=== PATIENT | female | born 1955 | race Caucasian/White ===

== ENCOUNTER 2024-04-27 19:57 | Observation (INO) ==
--- NOTE | 2024-04-27 20:57 | DR.RASH ---
HPI Time Seen Time Seen by Provider: 04/27/24 20:56 PCP Primary Care Physician: Cassie Adan Complaint Chief Complaint:: pt in ed with extreme itching to BLE states she has lymphedema and the itching has become unbearble she seen her pcp yesterday and was given im rocephin, benadryl and started on doxycycline a home nurse was supposed to come and do wound care on pts legs but states they couldn't travel to [facility]. Onset of Chief Complaint: 04/25/24 COVID-19 Coronavirus risk:travel/contact w/high risk person: No Has patient experienced Coronavirus symptoms: No Reviewed Nurses Notes Review: Yes Source History Provided: Patient Mode of Arrival Mode of Arrival: Ambulatory PMH PMH Past Medical History: Yes Past Medical History: Diabetes, Hypertension, Hypothyroidism and Renal Disease Past Surgical History: Yes Surgical History: [employer] Surgery, Hysterectomy, Ortho Surgery and Tonsillectomy Family History History of Family Medical Conditions: Yes Family Medical History: Diabetes Mellitus and Hypertension Social History Do you use any recreational Drugs:: No Travel Risk Coronavirus risk:travel/contact w/high risk person: No Has patient experienced Coronavirus symptoms: No Infectious screening Have you traveled outside the country in the last 6 months?: No Isolation: Standard PE Vital Signs Vitals: Vital Signs Temperature 97.7 F Pulse Rate 76 Respiratory Rate 22 Blood Pressure 163/72 O2 Sat by Pulse Oximetry 95 ROR Labs Reviewed 04/27/24 21:08 04/27/24 21:08 Laboratory: WBC 14.0 X10^3/uL (3.6-10.0) H 04/27/24 21:08 RBC 3.92 X10^6/uL (3.5-5.4) 04/27/24 21:08 Hgb 11.6 g/dL (12.0-16.0) L 04/27/24 21:08 Hct 35.8 % (36.0-47.0) L 04/27/24 21:08 MCV 91.5 fL (80.0-100.0) 04/27/24 21:08 MCH 29.7 pg (27.0-34.0) 04/27/24 21:08 MCHC 32.5 g/dL (33.0-35.0) L 04/27/24 21:08 RDW 14.2 % (11.6-16.5) 04/27/24 21:08 Plt Count 273 X10^3/uL (150.0-450.0) 04/27/24 21:08 MPV 8.7 fL (7.4-11.0) 04/27/24 21:08 Neut % (Auto) 71.4 % (42.0-75.0) 04/27/24 21:08 Lymph % (Auto) 18.5 % (21.0-51.0) L 04/27/24 21:08 [place] % (Auto) 5.7 % (0.0-13.0) 04/27/24 21:08 Eos % (Auto) 3.2 % (0.9-2.9) H 04/27/24 21:08 Baso % (Auto) 1.2 % (0.2-1.0) H 04/27/24 21:08 Neut # (Auto) 10.0 x10^3/uL (2.2-4.8) H 04/27/24 21:08 Lymph # (Auto) 2.6 X10^3/uL (1.3-2.9) 04/27/24 21:08 [place] # (Auto) 0.8 x10^3/uL (0.3-0.8) 04/27/24 21:08 Eos # (Auto) 0.5 x10^3/uL (0.0-0.2) H 04/27/24 21:08 Baso # (Auto) 0.2 X10^3/uL (0.0-0.1) H 04/27/24 21:08 Absolute Nucleated RBC 0.0 /100WBC 04/27/24 21:08 Sodium 135 mmol/L (136-145) L 04/27/24 21:08 Corrected Sodium 136 mmol/L (136-145) 04/27/24 21:08 Potassium 4.5 mmol/L (3.5-5.1) 04/27/24 21:08 Chloride 100 mmol/L (98-107) 04/27/24 21:08 Carbon Dioxide 31.1 mmol/L (21-32) 04/27/24 21:08 BUN 27 mg/dL (7-18) H 04/27/24 21:08 Creatinine 1.79 mg/dL (0.55-1.02) H 04/27/24 21:08 Est GFR (MDRD) Af Amer 36 (>60) L 04/27/24 21:08 Est GFR (MDRD) Non-Af 30 (>60) L 04/27/24 21:08 Glucose 131 mg/dL (65-99) H 04/27/24 21:08 Calcium 9.6 mg/dL (8.5-10.1) 04/27/24 21:08 Corrected Calcium TNP 04/27/24 21:08 Total Bilirubin 0.40 mg/dL (0.2-1.0) 04/27/24 21:08 AST 16 Units/L (15-37) 04/27/24 21:08 ALT 30 Units/L (12-78) 04/27/24 21:08 Alkaline Phosphatase 172 Units/L (46-116) H 04/27/24 21:08 B-Natriuretic Peptide 14.0 pg/mL (0-79) 04/27/24 21:08 Total Protein 7.0 g/dL (6.4-8.2) 04/27/24 21:08 Albumin 3.6 g/dL (3.4-5.0) 04/27/24 21:08 Globulin 3.4 g/dL (2.5-4.5) 04/27/24 21:08 Albumin/Globulin Ratio 1.1 Ratio (1.1-2.1) 04/27/24 21:08 Opioid Opioid Risk Tool Age (Anthony box if 16-45): No History of Preadolescent Sexual Abuse: No Total: 0 Total Score Risk Category: Low Risk Copyright: Melo BARBER predicting aberrant behaviors Discharge Plan Diagnosis Discharge Problem: Bilateral lower leg cellulitis, Failure of outpatient treatment Pain of lower leg Qualifiers: Laterality: bilateral Qualified Code(s): M79.661 - Pain in right lower leg Discharge Plan Patient Disposition: 09 ADMITTED INPATIENT Condition: Stable Prescriptions: No Action silver sulfadiazine [SSD] 1 % cream TOPICAL BID amiodarone 200 mg tablet 400 mg PO BID acetaminophen-codeine 300-30 mg tablet 1 tab PO BID PRN (Reason: pain) amlodipine 5 mg tablet 5 mg PO QDAY spironolactone 25 mg tablet 25 mg PO QDAY doxycycline monohydrate 100 mg capsule 100 mg PO BID diclofenac sodium 75 mg tablet,delayed release (DR/EC) 75 mg PO BID diltiazem HCl 120 mg capsule,extended release 24hr 120 mg PO BID bumetanide 1 mg tablet 1 mg PO QDAY montelukast 10 mg tablet 10 mg PO QDAY hydroxyzine HCl 25 mg tablet 25 mg PO TID PRN (Reason: itch) losartan 100 mg tablet 100 mg PO QDAY losartan 100 mg tablet 100 mg PO QDAY levothyroxine 112 mcg tablet 112 mcg PO QAM rosuvastatin 20 mg tablet 20 mg PO QPM duloxetine 60 mg capsule,delayed release(DR/EC) 60 mg PO QDAY Eliquis 5 mg tablet 5 mg PO BID Mounjaro 7.5 mg/0.5 mL pen injector 7.5 mg SUBCUT QWEEK Health Concerns: Post Hospitalization: new medications and changes needed to prevent readmission or further decline. Pt educated and given instructions on all concerns. Plan of Treatment: Continue with present treatment and follow up plan. Pt is to keep follow up appointment as instructed and take medications as ordered. Orders to Discharge Patient Discharge Orders: Transfer (Routine); Ordered 04/27/24 Ordered By: MIKE PIZARRO Follow ups/Referrals Follow ups/Referrals: Cassie Adan [Primary Care Provider] - 3 days Instructions Stand Alone Forms: Post Hospital Follow Up Care
[2024-04-27 21:28] LABS: BASOPHILS # (AUTO) 0.2 X10^3/uL (0.0-0.1); BASOPHILS % (AUTO) 1.2 % (0.2-1.0); EOSINOPHILS # (AUTO) 0.5 x10^3/uL (0.0-0.2); EOSINOPHILS % (AUTO) 3.2 % (0.9-2.9); HEMATOCRIT 35.8 % (36.0-47.0); HEMOGLOBIN 11.6 g/dL (12.0-16.0); LYMPHOCYTES # (AUTO) 2.6 X10^3/uL (1.3-2.9); LYMPHOCYTES % (AUTO) 18.5 % (21.0-51.0); MEAN CORPUSCULAR HEMOGLOBIN 29.7 pg (27.0-34.0); MEAN CORPUSCULAR HGB CONC 32.5 g/dL (33.0-35.0); MEAN CORPUSCULAR VOLUME 91.5 fL (80.0-100.0); MEAN PLATELET VOLUME 8.7 fL (7.4-11.0); MONOCYTES # (AUTO) 0.8 x10^3/uL (0.3-0.8); MONOCYTES % (AUTO) 5.7 % (0.0-13.0); NEUTROPHILS % (AUTO) 71.4 % (42.0-75.0); PLATELET COUNT 273 X10^3/uL (150.0-450.0); RED BLOOD COUNT 3.92 X10^6/uL (3.5-5.4); RED CELL DISTRIBUTION WIDTH 14.2 % (11.6-16.5)
[2024-04-27 21:39] LABS: ALANINE AMINOTRANSFERASE 30 Units/L (12-78); ALBUMIN 3.6 g/dL (3.4-5.0); ALKALINE PHOSPHATASE 172 Units/L (46-116); ASPARTATE AMINO TRANSFERASE 16 Units/L (15-37); BLOOD UREA NITROGEN 27 mg/dL (7-18); CALCIUM 9.6 mg/dL (8.5-10.1); CARBON DIOXIDE 31.1 mmol/L (21-32); CHLORIDE 100 mmol/L (98-107); COR NA(FOR HYPERGLY) 136 mmol/L (136-145); CREATININE 1.79 mg/dL (0.55-1.02); GLUCOSE 131 mg/dL (65-99); POTASSIUM 4.5 mmol/L (3.5-5.1); SODIUM 135 mmol/L (136-145); eGFR NON BLACK RACES 30 (>60)
[2024-04-27] MEDS: VANCOMYCIN IV *PREMIX 1 G/200 ML BAG 1 G/200 ML PIGGYBACK IV ONE (22:34)
[2024-04-27] MEDS ORDERED: VISTARIL PO ONE (23:16)
[2024-04-27] MEDS: VISTARIL PO ONE (23:19)
[2024-04-27] MEDS ORDERED: ZOFRAN TAB 4 MG PO PRN (23:50)
[2024-04-28 00:13] VITALS: BMI 58.5
[2024-04-28 05:54] LABS: BASOPHILS # (AUTO) 0.1 X10^3/uL (0.0-0.1); BASOPHILS % (AUTO) 0.5 % (0.2-1.0); EOSINOPHILS # (AUTO) 0.4 x10^3/uL (0.0-0.2); HEMATOCRIT 33.5 % (36.0-47.0); HEMOGLOBIN 11.2 g/dL (12.0-16.0); LYMPHOCYTES # (AUTO) 2.6 X10^3/uL (1.3-2.9); LYMPHOCYTES % (AUTO) 24.5 % (21.0-51.0); MEAN CORPUSCULAR HEMOGLOBIN 30.5 pg (27.0-34.0); MEAN CORPUSCULAR HGB CONC 33.3 g/dL (33.0-35.0); MEAN CORPUSCULAR VOLUME 91.4 fL (80.0-100.0); MEAN PLATELET VOLUME 8.9 fL (7.4-11.0); MONOCYTES # (AUTO) 0.7 x10^3/uL (0.3-0.8); NEUTROPHILS # (AUTO) 6.9 x10^3/uL (2.2-4.8); PLATELET COUNT 240 X10^3/uL (150.0-450.0); RED BLOOD COUNT 3.66 X10^6/uL (3.5-5.4); RED CELL DISTRIBUTION WIDTH 14.2 % (11.6-16.5); WHITE BLOOD COUNT 10.7 X10^3/uL (3.6-10.0)
[2024-04-28 06:06] LABS: ALANINE AMINOTRANSFERASE 26 Units/L (12-78); ALBUMIN 3.4 g/dL (3.4-5.0); ALKALINE PHOSPHATASE 148 Units/L (46-116); ASPARTATE AMINO TRANSFERASE 14 Units/L (15-37); BLOOD UREA NITROGEN 29 mg/dL (7-18); CALCIUM 9.2 mg/dL (8.5-10.1); CARBON DIOXIDE 27.6 mmol/L (21-32); CHLORIDE 100 mmol/L (98-107); COR NA(FOR HYPERGLY) 135 mmol/L (136-145); CREATININE 1.84 mg/dL (0.55-1.02); GLUCOSE 126 mg/dL (65-99); POTASSIUM 4.2 mmol/L (3.5-5.1); SODIUM 134 mmol/L (136-145); TOTAL PROTEIN 6.4 g/dL (6.4-8.2); eGFR NON BLACK RACES 29 (>60)
--- NOTE | 2024-04-28 08:51 | EKG ---
Test Reason : HX AFIB Blood Pressure : */* mmHG Vent. Rate : 73 BPM Atrial Rate : 73 BPM P-R Int : 210 ms QRS Dur : 82 ms QT Int : 356 ms P-R-T Axes : 76 13 34 degrees QTc Int : 392 ms Sinus rhythm with 1st degree AV block Low voltage QRS Possible Anterolateral infarct , age undetermined Abnormal ECG No previous ECGs available Confirmed by eJan Martinez MD ([id number]) on 04/28/2024 1:42:23 PM Referred By: Confirmed By: Jean Martinez MD
[2024-04-28] MEDS ORDERED: VANCOMYCIN IV *PREMIX 1 G/200 ML BAG 1 G/200 ML PIGGYBACK IV SCH ×2 (09:00→22:00)
[2024-04-28] MEDS ORDERED: BUMEX TAB 1 MG PO SCH (09:00)
[2024-04-28] MEDS ORDERED: NORVASC TAB 5 MG PO SCH (09:00)
[2024-04-28] MEDS: NS 1,000 ML IV 1,000 ML IV SCH (09:38)
[2024-04-28] MEDS: LASIX IVP SCH (09:40)
[2024-04-28] MEDS: CORDARONE TAB 200 MG PO SCH (09:40)
[2024-04-28] MEDS: COZAAR PO SCH (09:41)
[2024-04-28] MEDS: SYNTHROID 112 mcg TAB PO SCH (09:41)
[2024-04-28] MEDS: VISTARIL PO PRN (09:41)
[2024-04-28] MEDS: CARDIZEM CD 120 MG 24-HR PO SCH (09:42)
[2024-04-28] MEDS: ELIQUIS PO SCH (09:42)
[2024-04-28] MEDS: BENADRYL INJ 50 MG VIAL IV ONE (14:46)
--- NOTE | 2024-04-28 15:22 | VAS ---
EXAM: LOWER EXT VENOUS, BILATERAL HISTORY: CELLULITIS; COMPARISON: None available. TECHNIQUE: Multiple obrien scale and color flow Doppler images of the deep venous system were obtained of the righ t and left lower extremity. FINDINGS: The deep venous system of the right and left lower extremities were evaluated from the level of the c ommon femoral vein through the popliteal vein. Normal color flow and augmentation can be observed. In addition, normal compression is seen throughout the deep venous system. IMPRESSION: Negative for DVT. THIS IS AN ELECTRONICALLY VERIFIED FINAL REPORT 04/28/2024 3:19 PM - Electronically signed by Prince Chappell MD
[2024-04-28] MEDS: BENADRYL INJ 50 MG VIAL IVP PRN (16:51)
[2024-04-28] MEDS: KENALOG CREAM TOP SCH (18:05)
[2024-04-28] MEDS: VANCOMYCIN IV *PREMIX 1.5 G/300 ML BAG 1.5 G/300 ML PIGGYBACK IV SCH (20:35)
[2024-04-28] MEDS: CRESTOR TAB 10 MG PO SCH (20:39)
[2024-04-28] MEDS: TYLENOL #3 TAB (W/CODEINE) PO PRN (21:02)
[2024-04-29] MEDS: VALIUM PO ONE (00:21)
[2024-04-29 04:44] LABS: BASOPHILS # (AUTO) 0.1 X10^3/uL (0.0-0.1); BASOPHILS % (AUTO) 0.6 % (0.2-1.0); EOSINOPHILS # (AUTO) 0.5 x10^3/uL (0.0-0.2); EOSINOPHILS % (AUTO) 4.8 % (0.9-2.9); HEMOGLOBIN 11.4 g/dL (12.0-16.0); LYMPHOCYTES # (AUTO) 2.5 X10^3/uL (1.3-2.9); MONOCYTES # (AUTO) 0.7 x10^3/uL (0.3-0.8); PLATELET COUNT 236 X10^3/uL (150.0-450.0); WHITE BLOOD COUNT 10.1 X10^3/uL (3.6-10.0)
[2024-04-29 04:53] LABS: HEMATOCRIT 34.2 % (36.0-47.0); LYMPHOCYTES % (AUTO) 24.6 % (21.0-51.0); MEAN CORPUSCULAR HEMOGLOBIN 30.4 pg (27.0-34.0); MEAN CORPUSCULAR HGB CONC 33.4 g/dL (33.0-35.0); MEAN CORPUSCULAR VOLUME 91.2 fL (80.0-100.0); MEAN PLATELET VOLUME 8.9 fL (7.4-11.0); MONOCYTES % (AUTO) 7.4 % (0.0-13.0); NEUTROPHILS # (AUTO) 6.3 x10^3/uL (2.2-4.8); NEUTROPHILS % (AUTO) 62.6 % (42.0-75.0); RED BLOOD COUNT 3.76 X10^6/uL (3.5-5.4); RED CELL DISTRIBUTION WIDTH 14.2 % (11.6-16.5)
[2024-04-29 04:56] LABS: ALANINE AMINOTRANSFERASE 31 Units/L (12-78); ALBUMIN 3.4 g/dL (3.4-5.0); ALKALINE PHOSPHATASE 154 Units/L (46-116); ASPARTATE AMINO TRANSFERASE 32 Units/L (15-37); BLOOD UREA NITROGEN 35 mg/dL (7-18); CALCIUM 8.9 mg/dL (8.5-10.1); CARBON DIOXIDE 27.9 mmol/L (21-32); CHLORIDE 103 mmol/L (98-107); COR NA(FOR HYPERGLY) 142 mmol/L (136-145); CREATININE 1.93 mg/dL (0.55-1.02); GLUCOSE 127 mg/dL (65-99); POTASSIUM 4.1 mmol/L (3.5-5.1); SODIUM 141 mmol/L (136-145); TOTAL PROTEIN 6.4 g/dL (6.4-8.2); eGFR NON BLACK RACES 27 (>60)
--- NOTE | 2024-04-29 08:31 | DR.H&P ---
H&P History & Physical for Day of: H&P Date: 04/27/24 Chief Complaint Chief Complaint: LOWER LEG SWELLING, REDNESS AND ITCHING History of Present Illness History of Present Illness: PT IS 69 WM, ER ADMISSION AFTER PRESENTING WITH CO BILATERAL LOWER LEGS SWOLLEN WITH DIFFUSE REDNESS AND ITCHING. PT HAS HAD IM ROCEPHIN, BENADRYL AND PO ATBX FROM HER PCP FOR CELLULITIS. PT HAS PMH OF MO, HTN, HEART FAILURE, AND RENAL DISEASE. PT ADMITTED FOR TREATMENT AND EVALUATION OF ACUTE ILLNESS. Past Medical History Past Medical History: Diabetes, Hypertension, Hypothyroidism and Renal Disease Past Surgical History Surgical History: Cholecystectomy, Hysterectomy and Tonsillectomy Family History Family Medical History: Diabetes Mellitus, Cancer and Hypertension Social History Does patient currently use any type of tobacco product: No Type of Tobacco Use: None Does any household member use tobacco: Yes Alcohol Use: None Drug Use: None Medications Home Medications: Home Medications Medication Instructions Recorded Confirmed Type acetaminophen 300 mg-codeine 30 mg 1 tab PO BID PRN pain 04/27/24 04/27/24 History tablet amiodarone 200 mg tablet 400 mg PO BID 04/27/24 04/27/24 History amlodipine 5 mg tablet 5 mg PO QDAY blood pressure 04/27/24 04/27/24 History apixaban 5 mg tablet (Eliquis) 5 mg PO BID 04/27/24 04/27/24 History bumetanide 1 mg tablet 1 mg PO QDAY 04/27/24 04/27/24 History diclofenac sodium 75 mg 75 mg PO BID 04/27/24 04/27/24 History tablet,delayed release diltiazem HCl 120 mg 120 mg PO BID 04/27/24 04/27/24 History capsule,extended release 24 hr doxycycline monohydrate 100 mg 100 mg PO BID 04/27/24 04/27/24 History capsule duloxetine 60 mg capsule,delayed 60 mg PO QDAY 04/27/24 04/27/24 History release hydroxyzine HCl 25 mg tablet 25 mg PO TID PRN itch 04/27/24 04/27/24 History levothyroxine 112 mcg tablet 112 mcg PO QAM 04/27/24 04/27/24 History losartan 100 mg tablet 100 mg PO QDAY 04/27/24 04/27/24 History losartan 100 mg tablet 100 mg PO QDAY 04/27/24 04/27/24 History montelukast 10 mg tablet 10 mg PO QDAY allergies 04/27/24 04/27/24 History rosuvastatin 20 mg tablet 20 mg PO QPM 04/27/24 04/27/24 History silver sulfadiazine 1 % topical 1 applic topical BID 04/27/24 04/28/24 History cream (SSD) spironolactone 25 mg tablet 25 mg PO QDAY 04/27/24 04/27/24 History tirzepatide 7.5 mg/0.5 mL 7.5 mg subcut QWEEK 04/27/24 04/27/24 History subcutaneous pen injector (Zahida) Allergies Allergies Allergy/AdvReac Type Severity Reaction Status Date / Time metronidazole [From Flagyl] Allergy Verified 04/27/24 21:06 tramadol Allergy Verified 04/27/24 21:01 Labs 04/29/24 04:10 04/29/24 04:10 Labs: Laboratory WBC 10.7 X10^3/uL (3.6-10.0) H 04/28/24 05:10 RBC 3.66 X10^6/uL (3.5-5.4) 04/28/24 05:10 Hgb 11.2 g/dL (12.0-16.0) L 04/28/24 05:10 Hct 33.5 % (36.0-47.0) L 04/28/24 05:10 MCV 91.4 fL (80.0-100.0) 04/28/24 05:10 MCH 30.5 pg (27.0-34.0) 04/28/24 05:10 MCHC 33.3 g/dL (33.0-35.0) 04/28/24 05:10 RDW 14.2 % (11.6-16.5) 04/28/24 05:10 Plt Count 240 X10^3/uL (150.0-450.0) 04/28/24 05:10 MPV 8.9 fL (7.4-11.0) 04/28/24 05:10 Neut % (Auto) 64.0 % (42.0-75.0) 04/28/24 05:10 Lymph % (Auto) 24.5 % (21.0-51.0) 04/28/24 05:10 [place] % (Auto) 7.0 % (0.0-13.0) 04/28/24 05:10 Eos % (Auto) 4.0 % (0.9-2.9) H 04/28/24 05:10 Baso % (Auto) 0.5 % (0.2-1.0) 04/28/24 05:10 Neut # (Auto) 6.9 x10^3/uL (2.2-4.8) H 04/28/24 05:10 Lymph # (Auto) 2.6 X10^3/uL (1.3-2.9) 04/28/24 05:10 [place] # (Auto) 0.7 x10^3/uL (0.3-0.8) 04/28/24 05:10 Eos # (Auto) 0.4 x10^3/uL (0.0-0.2) H 04/28/24 05:10 Baso # (Auto) 0.1 X10^3/uL (0.0-0.1) 04/28/24 05:10 Absolute Nucleated RBC 0.0 /100WBC 04/28/24 05:10 Sodium 134 mmol/L (136-145) L 04/28/24 05:10 Corrected Sodium 135 mmol/L (136-145) L 04/28/24 05:10 Potassium 4.2 mmol/L (3.5-5.1) 04/28/24 05:10 Chloride 100 mmol/L (98-107) 04/28/24 05:10 Carbon Dioxide 27.6 mmol/L (21-32) 04/28/24 05:10 BUN 29 mg/dL (7-18) H 04/28/24 05:10 Creatinine 1.84 mg/dL (0.55-1.02) H 04/28/24 05:10 Est GFR (MDRD) Af Amer 35 (>60) L 04/28/24 05:10 Est GFR (MDRD) Non-Af 29 (>60) L 04/28/24 05:10 Glucose 126 mg/dL (65-99) H 04/28/24 05:10 POC Glucose (mg/dL) 123 mg/dL (65-99) H 04/28/24 11:04 Calcium 9.2 mg/dL (8.5-10.1) 04/28/24 05:10 Corrected Calcium TNP 04/28/24 05:10 Total Bilirubin 0.50 mg/dL (0.2-1.0) 04/28/24 05:10 AST 14 Units/L (15-37) L 04/28/24 05:10 ALT 26 Units/L (12-78) 04/28/24 05:10 Alkaline Phosphatase 148 Units/L (46-116) H 04/28/24 05:10 B-Natriuretic Peptide 14.0 pg/mL (0-79) 04/27/24 21:08 Total Protein 6.4 g/dL (6.4-8.2) 04/28/24 05:10 Albumin 3.4 g/dL (3.4-5.0) 04/28/24 05:10 Globulin 3.0 g/dL (2.5-4.5) 04/28/24 05:10 Albumin/Globulin Ratio 1.1 Ratio (1.1-2.1) 04/28/24 05:10 Review of Systems Constitutional: No Symptoms Reported Eyes: No Symptoms Reported ENT: No Symptoms Reported Respiratory: Shortness of Breath Cardiovascular: Edema Gastrointestinal: No Symptoms Reported Genitourinary: No Symptoms Reported Musculoskeletal: Leg Pain Skin: Rash (DIFFUSE BILATERAL LOWER EXTREMITY) Physical Exam Vital Signs: Vital Signs Temperature 97.5 F Temperature 97.0 F Pulse Rate [Left] 71 Pulse Rate [Left] 74 Respiratory Rate 18 Respiratory Rate 19 Blood Pressure [Left Arm] 126/60 Blood Pressure [Left Arm] 133/61 O2 Sat by Pulse Oximetry 92 O2 Sat by Pulse Oximetry 97 Oriented: Normal Eyes: Normal Ear: Normal Nose: Normal Throat: Normal Respiratory: RLL Diminished and LLL Diminished Cardiovascular: Normal and Edema : Normal Auscultation: Bowel Sounds: Normal Palpation: Normal Tenderness: Normal Skin: Rash, Red and Tender Musculoskeletal: Leg, Swelling and Tender Psychiatric: Anxiety Mood Description: Anxious Affect: Anxious Speech Pattern: Clear and Appropriate Assessment/Plan (1) Bilateral lower leg cellulitis: Status: Acute Plan: ADMIT, CULTURES ON ADMISSION IV VANCOMYCIN BP CONTROL, VERIFY AND CONTINUE HOME MEDICATIONS (2) Hypertension: Status: Acute (3) Atrial fibrillation, controlled: Status: Acute
[2024-04-29] MEDS: MORPHINE SULFATE INJ 2 MG INJ IVP PRN (10:46)
[2024-04-29] MEDS: MYCOLOG-II CREAM TOP SCH (10:52)
[2024-04-29] MEDS: PHARMACY CONSULT - VANCOMYCIN XX SCH (19:16)
[2024-04-29] MEDS: VANCOMYCIN IV *PREMIX 1 G/200 ML BAG 1 G/200 ML PIGGYBACK IV ONE (19:17)
[2024-04-29] MEDS: SOLU-Medrol 40 MG VIAL IVP SCH (19:30)
[2024-04-29] MEDS: BENADRYL INJ 50 MG VIAL IV SCH (19:30)
[2024-04-29] MEDS: CLEOCIN 300 MG IV PREMIX 300 MG/50 ML BAG IV SCH (21:15)
[2024-04-30] MEDS: RESTORIL CAP 15 MG PO PRN (00:02)
[2024-04-30 05:43] LABS: BASOPHILS % (AUTO) 0.2 % (0.2-1.0); EOSINOPHILS % (AUTO) 0.2 % (0.9-2.9); HEMATOCRIT 36.1 % (36.0-47.0); HEMOGLOBIN 11.8 g/dL (12.0-16.0); LYMPHOCYTES % (AUTO) 11.1 % (21.0-51.0); MEAN CORPUSCULAR HGB CONC 32.7 g/dL (33.0-35.0); MEAN CORPUSCULAR VOLUME 91.8 fL (80.0-100.0); MEAN PLATELET VOLUME 9.1 fL (7.4-11.0); MONOCYTES # (AUTO) 0.1 x10^3/uL (0.3-0.8); MONOCYTES % (AUTO) 0.7 % (0.0-13.0); NEUTROPHILS # (AUTO) 7.7 x10^3/uL (2.2-4.8); NEUTROPHILS % (AUTO) 87.8 % (42.0-75.0); PLATELET COUNT 217 X10^3/uL (150.0-450.0); RED BLOOD COUNT 3.93 X10^6/uL (3.5-5.4); RED CELL DISTRIBUTION WIDTH 14.3 % (11.6-16.5); WHITE BLOOD COUNT 8.7 X10^3/uL (3.6-10.0)
[2024-04-30 05:54] LABS: ALANINE AMINOTRANSFERASE 36 Units/L (12-78); ALBUMIN 3.4 g/dL (3.4-5.0); ALKALINE PHOSPHATASE 168 Units/L (46-116); ASPARTATE AMINO TRANSFERASE 20 Units/L (15-37); BLOOD UREA NITROGEN 30 mg/dL (7-18); CALCIUM 9.2 mg/dL (8.5-10.1); CARBON DIOXIDE 23.8 mmol/L (21-32); CHLORIDE 106 mmol/L (98-107); COR NA(FOR HYPERGLY) 144 mmol/L (136-145); CREATININE 1.57 mg/dL (0.55-1.02); GLUCOSE 221 mg/dL (65-99); POTASSIUM 4.5 mmol/L (3.5-5.1); SODIUM 141 mmol/L (136-145); TOTAL PROTEIN 6.8 g/dL (6.4-8.2); eGFR NON BLACK RACES 35 (>60)
[2024-04-30] MEDS: NovoLIN R (or HumuLIN R) SUBCUT PRN (06:06)
[2024-04-30] MEDS: VSL#3 PROBIOTIC CAP 112.5 B PO SCH (09:03)
--- NOTE | 2024-04-30 11:30 | PCM.PROG ---
Progress Note Progress Note for Day of Date of Exam: 04/30/24 Subjective Subjective: Patient seen at bedside, no acute events overnight. Her LE erythema has improved. She states itching is better with benadryl. She is currently being treated for cellulitis with IV clindamycin. Denies N/V/D. Renal function is improving. LE US was negative for DVT. She was noted to have some welts around her groin and thigh area yesterday. She was given solumedrol and benadryl. Labs/imaging reviewed: -Hgb 11.8 WBC 8.7 BUN/Cr 30/1.57 - Venous US negative Plan: Continue IV Clindamycin. Continue benadryl prn. Will add Vistaril for itching. Continue home medications. Continue hydration. Replace electrolytes as per protocol. Monitor AM labs/imaging. Monitor leg erythema. Past Medical Family Social History Allergies: Allergies metronidazole [From Flagyl] Allergy (Verified 04/27/24 21:06) tramadol Allergy (Verified 04/27/24 21:01) Vital Signs and I&O's Vital Signs: Vital Signs Temperature 97.7 F Temperature 97.4 F Pulse Rate [Left] 84 Pulse Rate [Left] 75 Respiratory Rate 21 Respiratory Rate 20 Blood Pressure [Left Arm] 160/65 Blood Pressure [Left Arm] 132/59 O2 Sat by Pulse Oximetry 97 O2 Sat by Pulse Oximetry 94 Intake and Output: Intake & Output 04/27/24 04/28/24 04/29/24 04/30/24 23:59 23:59 23:59 23:59 Intake Total 3571 / 3571 5288 / 5288 809 / 809 Output Total 1700 / 1700 3650 / 3650 0 / 0 Balance 1871 / 1871 1638 / 1638 809 / 809 Physical Exam Oriented: Normal Eyes: Normal Ear: Normal Nose: Normal Throat: Normal Cardiovascular: Normal and Edema Auscultation: Bowel Sounds: Normal Tenderness: Normal Skin: Rash (improved ), Red and Tender Musculoskeletal: Leg, Swelling and Tender Psychiatric: Normal Mood Description: Calm Affect: Normal Speech Pattern: Clear and Appropriate Laboratory and Diagnostics 04/30/24 05:03 04/30/24 05:03 Labs: Laboratory WBC 8.7 X10^3/uL (3.6-10.0) 04/30/24 05:03 RBC 3.93 X10^6/uL (3.5-5.4) 04/30/24 05:03 Hgb 11.8 g/dL (12.0-16.0) L 04/30/24 05:03 Hct 36.1 % (36.0-47.0) 04/30/24 05:03 MCV 91.8 fL (80.0-100.0) 04/30/24 05:03 MCH 30.0 pg (27.0-34.0) 04/30/24 05:03 MCHC 32.7 g/dL (33.0-35.0) L 04/30/24 05:03 RDW 14.3 % (11.6-16.5) 04/30/24 05:03 Plt Count 217 X10^3/uL (150.0-450.0) 04/30/24 05:03 MPV 9.1 fL (7.4-11.0) 04/30/24 05:03 Neut % (Auto) 87.8 % (42.0-75.0) H 04/30/24 05:03 Lymph % (Auto) 11.1 % (21.0-51.0) L 04/30/24 05:03 [place] % (Auto) 0.7 % (0.0-13.0) 04/30/24 05:03 Eos % (Auto) 0.2 % (0.9-2.9) L 04/30/24 05:03 Baso % (Auto) 0.2 % (0.2-1.0) 04/30/24 05:03 Neut # (Auto) 7.7 x10^3/uL (2.2-4.8) H 04/30/24 05:03 Lymph # (Auto) 1.0 X10^3/uL (1.3-2.9) L 04/30/24 05:03 [place] # (Auto) 0.1 x10^3/uL (0.3-0.8) L 04/30/24 05:03 Eos # (Auto) 0.0 x10^3/uL (0.0-0.2) 04/30/24 05:03 Baso # (Auto) 0.0 X10^3/uL (0.0-0.1) 04/30/24 05:03 Absolute Nucleated RBC 0.1 /100WBC 04/30/24 05:03 Sodium 141 mmol/L (136-145) 04/30/24 05:03 Corrected Sodium 144 mmol/L (136-145) 04/30/24 05:03 Potassium 4.5 mmol/L (3.5-5.1) 04/30/24 05:03 Chloride 106 mmol/L (98-107) 04/30/24 05:03 Carbon Dioxide 23.8 mmol/L (21-32) 04/30/24 05:03 BUN 30 mg/dL (7-18) H 04/30/24 05:03 Creatinine 1.57 mg/dL (0.55-1.02) H 04/30/24 05:03 Est GFR (MDRD) Af Amer 42 (>60) L 04/30/24 05:03 Est GFR (MDRD) Non-Af 35 (>60) L 04/30/24 05:03 Glucose 221 mg/dL (65-99) H 04/30/24 05:03 POC Glucose (mg/dL) 211 mg/dL (65-99) H 04/30/24 05:42 Calcium 9.2 mg/dL (8.5-10.1) 04/30/24 05:03 Corrected Calcium TNP 04/30/24 05:03 Total Bilirubin 0.40 mg/dL (0.2-1.0) 04/30/24 05:03 AST 20 Units/L (15-37) 04/30/24 05:03 ALT 36 Units/L (12-78) 04/30/24 05:03 Alkaline Phosphatase 168 Units/L (46-116) H 04/30/24 05:03 B-Natriuretic Peptide 14.0 pg/mL (0-79) 04/27/24 21:08 Total Protein 6.8 g/dL (6.4-8.2) 04/30/24 05:03 Albumin 3.4 g/dL (3.4-5.0) 04/30/24 05:03 Globulin 3.4 g/dL (2.5-4.5) 04/30/24 05:03 Albumin/Globulin Ratio 1.0 Ratio (1.1-2.1) L 04/30/24 05:03 Plan (1) Bilateral lower leg cellulitis: Status: Acute (2) Hypertension: Status: Chronic Qualifiers: Hypertension type: primary hypertension Qualified Code(s): I10 - Essential (primary) hypertension (3) Atrial fibrillation, controlled: Status: Chronic (4) Sciatica: Status: Chronic Qualifiers: Laterality: bilateral Qualified Code(s): M54.31 - Sciatica, right side; M54.32 - Sciatica, left side (5) Lower back pain: Status: Chronic Qualifiers: Back pain laterality: bilateral Chronicity: acute Sciatica presence: unspecified whether sciatica present Qualified Code(s): M54.50 - Low back pain, unspecified
[2024-04-30] MEDS: VISTARIL PO PRN (12:53)
[2024-04-30 17:03] VITALS: RESP 20
[2024-04-30] MEDS: SNACK - Diabetic Appropriate PO SCH (19:48)
[2024-04-30] MEDS ORDERED: PHARMACY COMMENT IV ONE (20:30)
[2024-05-01 05:54] LABS: BASOPHILS % (AUTO) 0.2 % (0.2-1.0); EOSINOPHILS % (AUTO) 0.1 % (0.9-2.9); HEMATOCRIT 32.5 % (36.0-47.0); HEMOGLOBIN 10.7 g/dL (12.0-16.0); LYMPHOCYTES # (AUTO) 1.7 X10^3/uL (1.3-2.9); LYMPHOCYTES % (AUTO) 9.1 % (21.0-51.0); MEAN CORPUSCULAR HEMOGLOBIN 30.2 pg (27.0-34.0); MEAN CORPUSCULAR VOLUME 91.4 fL (80.0-100.0); MEAN PLATELET VOLUME 8.9 fL (7.4-11.0); MONOCYTES % (AUTO) 5.2 % (0.0-13.0); NEUTROPHILS # (AUTO) 16.2 x10^3/uL (2.2-4.8); NEUTROPHILS % (AUTO) 85.4 % (42.0-75.0); PLATELET COUNT 250 X10^3/uL (150.0-450.0); RED BLOOD COUNT 3.55 X10^6/uL (3.5-5.4); RED CELL DISTRIBUTION WIDTH 14.4 % (11.6-16.5)
[2024-05-01 06:04] LABS: ALANINE AMINOTRANSFERASE 36 Units/L (12-78); ALBUMIN 3.5 g/dL (3.4-5.0); ALKALINE PHOSPHATASE 145 Units/L (46-116); ASPARTATE AMINO TRANSFERASE 19 Units/L (15-37); BLOOD UREA NITROGEN 27 mg/dL (7-18); CARBON DIOXIDE 24.8 mmol/L (21-32); CHLORIDE 107 mmol/L (98-107); COR NA(FOR HYPERGLY) 144 mmol/L (136-145); CREATININE 1.43 mg/dL (0.55-1.02); GLUCOSE 179 mg/dL (65-99); POTASSIUM 4.6 mmol/L (3.5-5.1); SODIUM 142 mmol/L (136-145); TOTAL PROTEIN 6.5 g/dL (6.4-8.2); eGFR NON BLACK RACES 39 (>60)
[2024-05-01 08:08] VITALS: TEMP 97.8
[2024-05-01 13:19] VITALS: BP 138/63; PULSE 75; O2SAT 95
--- NOTE | 2024-05-04 16:34 | W.DIS.FURT ---
Summary of Discharge Discharge Summary of Date Date of Exam: 05/02/24 Admission Date Date of Admission: 04/27/24 Admission Diagnosis Patient Problems (Updated 05/02/24 @ 00:20 by Tyron Cazares) Bilateral lower leg cellulitis (Acute) L03.116, L03.115 Pain of lower leg (Acute) M79.669 Failure of outpatient treatment (Acute) Z78.9 Hospital Course: Ms. Kevin is a 69-year-old female with past medical history of CHF, hypertension, CAD and atrial fibrillation presented with worsening lower extremity redness and swelling. Patient was treated for antibiotics outpatient but continued to have worsening symptoms. She was admitted for further evaluation. She was started on IV antibiotics, pain control and hydration. Venous ultrasound was negative for DVT. Her home medications were restarted. Her labs were monitored daily and electrolytes replaced as needed. Her leg redness and swelling did improve with antibiotics. Cultures were negative. She was ambulating and doing well. She was stable to be discharged home on oral antibiotics. She was also given Vistaril for itching. She will follow-up with PCP as scheduled. Vital Signs: Vital Signs (72 hours) 04/28/24 12:00 04/28/24 16:00 04/28/24 19:00 Temperature 97.5 F L 97.8 F Pulse Rate [Left] 71 68 Respiratory Rate 18 19 Blood Pressure [Left Arm] 126/60 120/58 O2 Sat by Pulse Oximetry 92 L 94 L Oxygen Delivery Method Room Air Room Air Room Air Oxygen Flow Rate FIO2% 04/28/24 21:02 04/28/24 20:00 04/28/24 21:49 Temperature 97.7 F Pulse Rate [Left] 71 Respiratory Rate 24 20 20 Blood Pressure [Left Arm] 124/58 O2 Sat by Pulse Oximetry 95 Oxygen Delivery Method Room Air Oxygen Flow Rate FIO2% 04/28/24 22:02 04/28/24 23:48 04/29/24 04:00 Temperature 97.8 F 97.9 F Pulse Rate [Left] 71 71 Respiratory Rate 20 22 20 Blood Pressure [Left Arm] 116/64 108/62 O2 Sat by Pulse Oximetry 95 95 Oxygen Delivery Method Room Air Room Air Oxygen Flow Rate FIO2% 04/29/24 10:46 04/29/24 07:00 04/29/24 08:00 Temperature 98.0 F Pulse Rate [Left] 71 Respiratory Rate 20 18 Blood Pressure [Left Arm] 126/58 O2 Sat by Pulse Oximetry 93 L Oxygen Delivery Method Room Air Room Air Oxygen Flow Rate FIO2% 04/29/24 11:16 04/29/24 12:00 04/29/24 16:00 Temperature 97.8 F 98.0 F Pulse Rate [Left] 69 65 Respiratory Rate 18 18 21 Blood Pressure [Left Arm] 124/57 120/59 O2 Sat by Pulse Oximetry 93 L 93 L Oxygen Delivery Method Room Air Room Air Oxygen Flow Rate FIO2% 04/29/24 19:45 04/29/24 19:00 04/29/24 23:27 Temperature 97.8 F 98.2 F Pulse Rate [Left] 70 78 Respiratory Rate 20 19 Blood Pressure [Left Arm] 126/59 146/63 O2 Sat by Pulse Oximetry 92 L 94 L Oxygen Delivery Method Room Air Room Air Room Air Oxygen Flow Rate FIO2% 04/30/24 04:00 04/30/24 08:00 04/30/24 07:00 Temperature 97.4 F L 97.7 F Pulse Rate [Left] 75 84 Respiratory Rate 20 21 Blood Pressure [Left Arm] 132/59 160/65 O2 Sat by Pulse Oximetry 94 L 97 Oxygen Delivery Method Room Air Room Air Nasal Cannula Oxygen Flow Rate 2 FIO2% 04/30/24 12:18 04/30/24 12:00 04/30/24 16:00 Temperature 98.4 F 97.4 F L Pulse Rate [Left] 83 76 Respiratory Rate 21 20 Blood Pressure [Left Arm] 125/60 132/58 O2 Sat by Pulse Oximetry 95 95 Oxygen Delivery Method Nasal Cannula Room Air Room Air Oxygen Flow Rate 2 FIO2% 28 04/30/24 19:00 04/30/24 19:42 04/30/24 20:19 Temperature 97.8 F Pulse Rate [Left] 80 Respiratory Rate 20 Blood Pressure [Left Arm] 139/63 O2 Sat by Pulse Oximetry 95 Oxygen Delivery Method Nasal Cannula Room Air Nasal Cannula Oxygen Flow Rate 2 2 FIO2% 28 04/30/24 23:02 05/01/24 04:00 05/01/24 08:00 Temperature 97.9 F 97.4 F L 97.8 F Pulse Rate [Left] 78 79 74 Respiratory Rate 20 20 20 Blood Pressure [Left Arm] 130/59 128/60 131/59 O2 Sat by Pulse Oximetry 97 97 97 Oxygen Delivery Method Room Air Room Air Room Air Oxygen Flow Rate FIO2% Labs: Laboratory Last Values WBC 19.0 X10^3/uL (3.6-10.0) H D 05/01/24 05:06 RBC 3.55 X10^6/uL (3.5-5.4) 05/01/24 05:06 Hgb 10.7 g/dL (12.0-16.0) L 05/01/24 05:06 Hct 32.5 % (36.0-47.0) L 05/01/24 05:06 MCV 91.4 fL (80.0-100.0) 05/01/24 05:06 MCH 30.2 pg (27.0-34.0) 05/01/24 05:06 MCHC 33.0 g/dL (33.0-35.0) 05/01/24 05:06 RDW 14.4 % (11.6-16.5) 05/01/24 05:06 Plt Count 250 X10^3/uL (150.0-450.0) 05/01/24 05:06 MPV 8.9 fL (7.4-11.0) 05/01/24 05:06 Neut % (Auto) 85.4 % (42.0-75.0) H 05/01/24 05:06 Lymph % (Auto) 9.1 % (21.0-51.0) L 05/01/24 05:06 Hooker % (Auto) 5.2 % (0.0-13.0) 05/01/24 05:06 Eos % (Auto) 0.1 % (0.9-2.9) L 05/01/24 05:06 Baso % (Auto) 0.2 % (0.2-1.0) 05/01/24 05:06 Neut # (Auto) 16.2 x10^3/uL (2.2-4.8) H 05/01/24 05:06 Lymph # (Auto) 1.7 X10^3/uL (1.3-2.9) 05/01/24 05:06 Hooker # (Auto) 1.0 x10^3/uL (0.3-0.8) H 05/01/24 05:06 Eos # (Auto) 0.0 x10^3/uL (0.0-0.2) 05/01/24 05:06 Baso # (Auto) 0.0 X10^3/uL (0.0-0.1) 05/01/24 05:06 Absolute Nucleated RBC 0.0 /100WBC 05/01/24 05:06 Sodium 142 mmol/L (136-145) 05/01/24 05:06 Corrected Sodium 144 mmol/L (136-145) 05/01/24 05:06 Potassium 4.6 mmol/L (3.5-5.1) 05/01/24 05:06 Chloride 107 mmol/L (98-107) 05/01/24 05:06 Carbon Dioxide 24.8 mmol/L (21-32) 05/01/24 05:06 BUN 27 mg/dL (7-18) H 05/01/24 05:06 Creatinine 1.43 mg/dL (0.55-1.02) H 05/01/24 05:06 Est GFR (MDRD) Af Amer 47 (>60) L 05/01/24 05:06 Est GFR (MDRD) Non-Af 39 (>60) L 05/01/24 05:06 Glucose 179 mg/dL (65-99) H 05/01/24 05:06 POC Glucose (mg/dL) 163 mg/dL (65-99) H 05/01/24 05:06 Calcium 9.0 mg/dL (8.5-10.1) 05/01/24 05:06 Corrected Calcium TNP 05/01/24 05:06 Total Bilirubin 0.40 mg/dL (0.2-1.0) 05/01/24 05:06 AST 19 Units/L (15-37) 05/01/24 05:06 ALT 36 Units/L (12-78) 05/01/24 05:06 Alkaline Phosphatase 145 Units/L (46-116) H 05/01/24 05:06 B-Natriuretic Peptide 14.0 pg/mL (0-79) 04/27/24 21:08 Total Protein 6.5 g/dL (6.4-8.2) 05/01/24 05:06 Albumin 3.5 g/dL (3.4-5.0) 05/01/24 05:06 Globulin 3.0 g/dL (2.5-4.5) 05/01/24 05:06 Albumin/Globulin Ratio 1.2 Ratio (1.1-2.1) 05/01/24 05:06 Reason For Visit: BILATATERAL LOWER EXTREMITY CELLULITIS Discharge Diagnosis All Active Problems (Updated 05/02/24 @ 00:20 by Tyron Cazares) Chest pain, muscular (Acute) CHF (congestive heart failure) (Acute) Leucocytosis (Acute) Breath shortness (Acute) Atrial fibrillation, controlled (Chronic) Hypertension (Chronic) Sciatica (Chronic) Lower back pain (Chronic) Bilateral lower leg cellulitis (Acute) Pain of lower leg (Acute) Failure of outpatient treatment (Acute) Back pain (Acute) Plan of Treatment: Continue with present treatment and follow up plan. Pt is to keep follow up appointment as instructed and take medications as ordered. Discharge Medications Discharge Medications: metronidazole [From Flagyl] Allergy (Verified 04/27/24 21:06) tramadol Allergy (Verified 04/27/24 21:01) CONTINUE taking the following medications acetaminophen 300 mg-codeine 30 mg tablet 1 tab PO BID PRN pain 04/27/24 [History] amiodarone 200 mg tablet 400 mg PO BID 04/27/24 [History] amlodipine 5 mg tablet 5 mg PO QDAY blood pressure 04/27/24 [History] apixaban 5 mg tablet (Eliquis) 5 mg PO BID 04/27/24 [History] bumetanide 1 mg tablet 1 mg PO QDAY 04/27/24 [History] diclofenac sodium 75 mg tablet,delayed release 75 mg PO BID 04/27/24 [History] diltiazem HCl 120 mg capsule,extended release 24 hr 120 mg PO BID 04/27/24 [History] doxycycline monohydrate 100 mg capsule 100 mg PO BID 04/27/24 [History] duloxetine 60 mg capsule,delayed release 60 mg PO QDAY 04/27/24 [History] hydroxyzine HCl 25 mg tablet 25 mg PO TID PRN itch 04/27/24 [History] levothyroxine 112 mcg tablet 112 mcg PO QAM 04/27/24 [History] losartan 100 mg tablet 100 mg PO QDAY 04/27/24 [History] losartan 100 mg tablet 100 mg PO QDAY 04/27/24 [History] montelukast 10 mg tablet 10 mg PO QDAY allergies 04/27/24 [History] rosuvastatin 20 mg tablet 20 mg PO QPM 04/27/24 [History] silver sulfadiazine 1 % topical cream (SSD) 1 applic topical BID 04/27/24 [History] spironolactone 25 mg tablet 25 mg PO QDAY 04/27/24 [History] tirzepatide 7.5 mg/0.5 mL subcutaneous pen injector (Mounjaro) 7.5 mg subcut QWEEK 04/27/24 [History] New Prescriptions Lactobac no.2-Bifidobac no.11-S. thermo 112.5 billion cell capsule (High Potency Probiotic) 2 cap PO DAILY 15 days #30 caps 05/01/24 [Rx] clindamycin HCl 300 mg capsule 300 mg PO TID 5 days #15 caps 05/01/24 [Rx] hydroxyzine pamoate 25 mg capsule 25 mg PO Q8H PRN 10 days #30 caps 05/01/24 [Rx] Discharge Disposition Discharge Disposition: To home Discharge Condition: Stable Discharge Plan Discharge Plan Hospital Course: Ms. Kevin is a 69-year-old female with past medical history of CHF, hypertension, CAD and atrial fibrillation presented with worsening lower extremity redness and swelling. Patient was treated for antibiotics outpatient but continued to have worsening symptoms. She was admitted for further evaluation. She was started on IV antibiotics, pain control and hydration. Venous ultrasound was negative for DVT. Her home medications were restarted. Her labs were monitored daily and electrolytes replaced as needed. Her leg redness and swelling did improve with antibiotics. Cultures were negative. She was ambulating and doing well. She was stable to be discharged home on oral antibiotics. She was also given Vistaril for itching. She will follow-up with PCP as scheduled. Patient Disposition: HOME HEALTH SERVICE Condition: Stable Health Concerns: Post Hospitalization: new medications and changes needed to prevent readmission or further decline. Pt educated and given instructions on all concerns. Care Plan Goals: Problem: Infection Goal: Temperature within normal limits. Resolved infection. Instructions: Follow provided instructions. Follow up with primary physician as directed. Contact primary care physician or report to the closest Emergency Room if condition worsens. Plan of Treatment: Continue with present treatment and follow up plan. Pt is to keep follow up appointment as instructed and take medications as ordered. Prescription drug monitoring program results: PDMP reviewed and no concerns identified Prescriptions: New High Potency Probiotic 112.5 billion cell Capsule 2 cap PO DAILY 15 Days Qty: 30 0RF clindamycin HCl 300 mg capsule 300 mg PO TID 5 Days Qty: 15 0RF Continued silver sulfadiazine [SSD] 1 % cream 1 applic TOPICAL BID amiodarone 200 mg tablet 400 mg PO BID acetaminophen-codeine 300-30 mg tablet 1 tab PO BID PRN (Reason: pain) amlodipine 5 mg tablet 5 mg PO QDAY spironolactone 25 mg tablet 25 mg PO QDAY diclofenac sodium 75 mg tablet,delayed release (DR/EC) 75 mg PO BID diltiazem HCl 120 mg capsule,extended release 24hr 120 mg PO BID montelukast 10 mg tablet 10 mg PO QDAY losartan 100 mg tablet 100 mg PO QDAY levothyroxine 112 mcg tablet 112 mcg PO QAM rosuvastatin 20 mg tablet 20 mg PO QPM duloxetine 60 mg capsule,delayed release(DR/EC) 60 mg PO QDAY Eliquis 5 mg tablet 5 mg PO BID No Action hydroxyzine HCl 25 mg tablet 25 mg PO TID PRN (Reason: itch) Follow ups/Referrals Follow ups/Referrals: [facility] [STAFF PHYSICIAN] - Cassie Adan [Primary Care Provider] - 1 WEEK Instructions Instructions: Cellulitis, Adult, [id number]-gs-[id number] Stand Alone Forms: [facility] Follow Up Care
== END 2024-05-01 13:00 | disposition home health service (06) ==
LOC: ER 19:57 → MED/SURG 22:56 → INTOOBSV 22:56 → MED/SURG 23:40
PROVIDERS: ADMIT Internal Medicine; ATTEND Internal Medicine